=== PATIENT | female | born 1970 | race Caucasian/White ===

== ENCOUNTER 2022-06-11 10:49 | Outpatient (CLI) | payer BC, SELFPAY ==
[2022-06-11 11:54] LABS: Kit Draw Collected
== END 2022-06-11 10:50 | disposition home or self-care (01) ==
LOC: ANHGOSHLAB 10:51
PROVIDERS: PCP Family Medicine; Visit Provider Family Medicine
DX: E78.5 Hyperlipidemia, unspecified (principal); E55.9 Vitamin D deficiency, unspecified; E66.9 Obesity, unspecified
CPT/HCPCS: 36415